=== PATIENT | male | born 1990 | race Caucasian/White ===

== ENCOUNTER 2018-07-11 18:32 | Emergency (ER) | payer OTHER ==
[~2018-07-11] VITALS: Ht 175.3 cm; Wt 145.4 kg
[2018-07-11 22:20] LABS: BASOPHILS % (AUTO) 0.8 % (0.0-2.0); EOSINOPHILS % (AUTO) 3.4 % (1.0-6.0); HEMATOCRIT 42.9 % (41-53); HEMOGLOBIN 14.8 g/dL (13.5-17.5); LYMPHOCYTES # (AUTO) 2.5 K/uL (1.0-4.8); LYMPHOCYTES % (AUTO) 23.1 % (22.0-44.0); MEAN CORPUSCULAR HEMOGLOBIN 27.8 pg (26.0-34.0); MEAN CORPUSCULAR HGB CONC 34.5 G/dL (31.0-37.0); MEAN CORPUSCULAR VOLUME 80 fL (80-100); MONOCYTES # (AUTO) 0.8 K/uL (0.1-1.0); MONOCYTES % (AUTO) 7.3 % (2.0-9.0); NEUTROPHILS # (AUTO) 6.9 K/uL (1.8-7.7); NEUTROPHILS % (AUTO) 65.4 % (40.0-70.0); PLATELET COUNT (AUTO) 210 K/uL (150-450); RED BLOOD CELL COUNT(AUTO) 5.34 MIL/uL (4.50-5.90); RED CELL DISTRIBUTION WIDTH 13.6 % (11.5-14.5)
[2018-07-11 22:35] LABS: ANION GAP 9 mmol/L (8-16); CALCIUM, TOTAL 9.5 mg/dL (8.8-10.5); CARBON DIOXIDE 27 mmol/L (22-29); CHLORIDE 103 mmol/L (98-107); CREATININE 1.02 mg/dL (0.60-1.30); GLOMERULAR FILTR. RATE CALC > 60 mL/min (>60); GLUCOSE,RANDOM 116 mg/dL (70-110); SODIUM SERUM 139 mmol/L (136-145); UREA NITROGEN, BLOOD 14 mg/dL (7-18)
[2018-07-11 22:41] LABS: ALANINE AMINOTRANSFERASE 59 U/L (12-78); ALKALINE PHOSPHATASE 76 U/L (46-116); ASPARTATE AMINOTRANSFERASE 23 U/L (15-37); BILIRUBIN,TOTAL 0.6 mg/dL (0.1-1.0); TOTAL PROTEIN, SERUM 7.7 g/dL (6.4-8.2)
[2018-07-11 22:53] LABS: AMPHET/METH SCREEN,URINE POSITIVE (NEGATIVE); BARBITURATE SCREEN, URINE NEGATIVE (NEGATIVE); BENZODIAZEPINES SCREEN,URINE NEGATIVE (NEGATIVE); CANNABINOID SCREEN,URINE NEGATIVE (NEGATIVE); COCAINE SCREEN,URINE NEGATIVE (NEGATIVE); METHADONE SCREEN, URINE NEGATIVE (NEGATIVE); OPIATE SCREEN,URINE NEGATIVE (NEGATIVE)
[2018-07-11 22:59] LABS: PHENCYCLIDINE SCREEN,URINE NEGATIVE (NEGATIVE)
[2018-07-12] MEDS: DiphenhydrAMINE HCL 25 MG CAPSULE PO ONE ×2 (01:50→02:19)
[2018-07-12] MEDS: HALOPERIDOL 5 MG TABLET PO ONE ×2 (01:50→02:19)
[2018-07-12] MEDS: LORazepam 2 MG TABLET PO ONE ×2 (01:51→02:19)
[2018-07-12 02:41] VITALS: BP 137/89
== END 2018-07-12 02:41 | disposition home or self-care (01) ==
LOC: EMS 18:33
DX: F29 Unspecified psychosis not due to a substance or known physiological condition (principal); F41.9 Anxiety disorder, unspecified; F32.9 Major depressive disorder, single episode, unspecified; F22 Delusional disorders; F15.10 Other stimulant abuse, uncomplicated; E66.01 Morbid (severe) obesity due to excess calories; Z68.42 Body mass index [BMI] 45.0-49.9, adult
CPT/HCPCS: 36415; 80053; 80307; 85025; 99284; G0480

== ENCOUNTER 2019-10-25 09:31 | Inpatient (IN) | payer MEDICAID, OTHER ==
[~2019-10-25] VITALS: Ht 177.8 cm; Wt 100.0 kg
[2019-10-25] MEDS ORDERED: HALOPERIDOL LACTATE 5 MG/ML VIAL IM ONE (10:00)
[2019-10-25] MEDS ORDERED: DiphenhydrAMINE HCL 50 MG/ML VIAL IM ONE (10:00)
[2019-10-25] MEDS ORDERED: LORazepam 2 MG/ML VIAL IM ONE (10:00)
[2019-10-25 13:21] LABS: BASOPHILS % (AUTO) 0.7 % (0.0-2.0); EOSINOPHILS % (AUTO) 4.1 % (1.0-6.0); HEMATOCRIT 45.1 % (41-53); HEMOGLOBIN 15.3 g/dL (13.5-17.5); LYMPHOCYTES # (AUTO) 2.2 K/uL (1.0-4.8); LYMPHOCYTES % (AUTO) 24.6 % (22.0-44.0); MEAN CORPUSCULAR HEMOGLOBIN 28.6 pg (26.0-34.0); MEAN CORPUSCULAR HGB CONC 33.9 G/dL (31.0-37.0); MEAN CORPUSCULAR VOLUME 84 fL (80-100); MONOCYTES # (AUTO) 0.6 K/uL (0.1-1.0); MONOCYTES % (AUTO) 6.7 % (2.0-9.0); NEUTROPHILS # (AUTO) 5.6 K/uL (1.8-7.7); NEUTROPHILS % (AUTO) 63.9 % (40.0-70.0); PLATELET COUNT (AUTO) 189 K/uL (150-450); RED BLOOD CELL COUNT(AUTO) 5.35 MIL/uL (4.50-5.90); RED CELL DISTRIBUTION WIDTH 14.6 % (11.5-14.5)
[2019-10-25 13:30] LABS: ANION GAP 7 mmol/L (8-16); CALCIUM, TOTAL 8.7 mg/dL (8.8-10.5); CARBON DIOXIDE 29 mmol/L (22-29); CHLORIDE 109 mmol/L (98-107); CREATININE 0.98 mg/dL (0.60-1.30); GLOMERULAR FILTR. RATE CALC > 60 mL/min (>60); GLUCOSE,RANDOM 100 mg/dL (70-110); POTASSIUM 3.7 mmol/L (3.5-5.1); SODIUM SERUM 145 mmol/L (136-145); UREA NITROGEN, BLOOD 12 mg/dL (7-18)
[2019-10-25] MEDS ORDERED: HALOPERIDOL 5 MG TABLET PO PRN (13:30)
[2019-10-25] MEDS ORDERED: ZOLPIDEM TARTRATE 10 MG TABLET PO PRN (13:30)
[2019-10-25 13:36] LABS: ALANINE AMINOTRANSFERASE 27 U/L (12-78); ALBUMIN 3.8 g/dL (3.4-5.0); ALKALINE PHOSPHATASE 54 U/L (46-116); ASPARTATE AMINOTRANSFERASE 15 U/L (15-37); BILIRUBIN,TOTAL 0.8 mg/dL (0.1-1.0); TOTAL PROTEIN, SERUM 7.4 g/dL (6.4-8.2)
[2019-10-25 18:07] VITALS: BP 127/74
[2019-10-26 05:22] VITALS: BP 132/77
[2019-10-26 08:00] VITALS: BP 102/66
[2019-10-26] MEDS: OLANZapine 5 MG RAPDIS TABLET PO SCH ×2 (09:55→16:37)
[2019-10-26 14:25] VITALS: BP 102/66
[2019-10-26 16:12] VITALS: BP 141/65
[2019-10-26] MEDS ORDERED: DOCUSATE SODIUM 100 MG CAPSULE PO PRN (17:15)
[2019-10-26] MEDS ORDERED: ALBUTEROL SULFATE HFA 90 MCG/PUFF 8 GM INHALER IH PRN (17:15)
[2019-10-26] MEDS ORDERED: GuaiFENesin/D-METHORPHAN [SUGAR-FREE] 200-20MG/10 ML SYRUP UDCUP PO PRN (17:15)
[2019-10-26] MEDS ORDERED: LOPERAMIDE HCL 2 MG CAPSULE PO PRN (17:15)
[2019-10-26] MEDS ORDERED: ONDANSETRON HCL 4 MG TABLET PO PRN (17:15)
[2019-10-26] MEDS ORDERED: NICOTINE 14 MG/24 HOUR PATCH TD PRN (17:15)
[2019-10-26] MEDS ORDERED: ACETAMINOPHEN 325 MG TABLET PO PRN (17:15)
[2019-10-26] MEDS ORDERED: PETROLATUM,WHITE 28 GM JELLY TP PRN (17:15)
[2019-10-26] MEDS ORDERED: IBUPROFEN 400 MG TABLET PO PRN (17:15)
[2019-10-26] MEDS ORDERED: CloNIDine HCL 0.1 MG TABLET PO PRN (17:15)
[2019-10-26] MEDS ORDERED: MAGNESIUM HYDROXIDE SUSPENSION 30 ML UDCUP PO PRN (17:15)
[2019-10-26] MEDS ORDERED: MAG HYDROX/AL HYDROX/SIMETH ES 30 ML SUSPENSION UDCUP PO PRN (17:15)
[2019-10-27 02:45] VITALS: BP 122/77
[2019-10-27 08:20] VITALS: BP 132/64
[2019-10-27] MEDS: OLANZapine 5 MG RAPDIS TABLET PO SCH ×4 (09:00→17:00)
[2019-10-27 16:09] VITALS: BP 126/61
[2019-10-28 06:11] VITALS: BP 122/74
[2019-10-28] MEDS: OLANZapine 5 MG RAPDIS TABLET PO SCH ×2 (08:23→16:47)
[2019-10-28] MEDS: LORazepam 2 MG TABLET PO PRN ×2 (08:23→14:54)
[2019-10-28 08:29] VITALS: BP 141/70
[2019-10-28 16:10] VITALS: BP 100/52
[2019-10-29 06:12] VITALS: BP 113/70
[2019-10-29] MEDS: OLANZapine 5 MG RAPDIS TABLET PO SCH ×2 (08:24→16:30)
[2019-10-29 08:40] VITALS: BP 134/78
[2019-10-29 16:10] VITALS: BP 125/69
[2019-10-29] MEDS: LORazepam 2 MG TABLET PO PRN (16:30)
[2019-10-30 00:20] VITALS: BP 118/64
[2019-10-30 08:25] VITALS: BP 134/61
[2019-10-30] MEDS: OLANZapine 5 MG RAPDIS TABLET PO SCH ×2 (09:18→17:03)
[2019-10-30] MEDS: LORazepam 2 MG TABLET PO PRN ×2 (09:18→17:20)
[2019-10-30 16:07] VITALS: BP 132/75
[2019-10-31 06:05] VITALS: BP 128/70
[2019-10-31 08:05] VITALS: BP 116/58
[2019-10-31] MEDS: OLANZapine 5 MG RAPDIS TABLET PO SCH (09:06)
[2019-10-31] MEDS ORDERED: OLAN5TAB2 PO (12:38)
== END 2019-10-31 13:30 | disposition home or self-care (01) | DRG 885 ==
LOC: EMS 09:36 → B3A 16:32
PROVIDERS: ADMIT Psychiatry & Neurology Child & Adolescent Psychiatry; ATTEND Psychiatry & Neurology Child & Adolescent Psychiatry
DX: F20.0 Paranoid schizophrenia (principal); F41.9 Anxiety disorder, unspecified; R10.13 Epigastric pain; Z91.19 Patient's noncompliance with other medical treatment and regimen
CPT/HCPCS: G0480; J1200; J1630; J2060